=== PATIENT | female | born 1975 | race Caucasian/White ===

== ENCOUNTER 2018-12-18 08:45 | Day surgery (SDC) | payer OTHER ==
[~2018-12-18] VITALS: Ht 172.7 cm; Wt 62.0 kg
[~2018-12-18 08:45] MED LIST: Amoxicillin500 MG PO; Augmentin 875-1 EACH PO; CEPH500 PO; FERR325 PO; HYDACE5 PO; IBUP800 PO; LIDO2L TOP; MULVITMINE; NAPR500 PO; NAPR550 PO; OXYACE10 PO; OXYACE5T PO; RXHYDACE PO; RXNAPNA550 PO; RXOXYACE PO; SULTRIDS PO; Verotin-Gr Cap1 EACH PO
== END 2018-12-18 10:40 | disposition home or self-care (01) ==
LOC: ORSCSDS 08:45
PROVIDERS: Internal Medicine Gastroenterology
PROC: 0DJD8ZZ Inspection of Lower Intestinal Tract, Via Natural or Artificial Opening Endoscopic (ICD-10-PCS; principal; 2018-12-18 10:00)
DX: R10.84 Generalized abdominal pain (principal); K62.5 Hemorrhage of anus and rectum; K64.8 Other hemorrhoids; Z83.71 Family history of colonic polyps; Z79.899 Other long term (current) drug therapy
CPT/HCPCS: J2704; J7120

== ENCOUNTER 2021-08-06 13:13 | Day surgery (SDC) | payer OTHER ==
[~2021-08-06] VITALS: Ht 172.7 cm; Wt 63.7 kg
[~2021-08-06 13:13] MED LIST changes: +MAGCHL64ER; +MULVITA PO; +VITAMIN K240 MCG PO
--- NOTE | 2021-08-06 17:17 | NUR ---
Nishant Rivero warming gown applied. Discharge instructions reviewed with patient. Patient verbalizes understanding. Copy given to patient to take home. Patient States Post-Procedure ride home has been arranged. Discharged via wheelchair to private car for ride home.
== END 2021-08-06 22:41 | disposition home or self-care (01) ==
LOC: ORSCMMR 13:13 → ORD 14:45 → ORSCMMR 14:45
PROVIDERS: Obstetrics & Gynecology
PROC: 0HBAXZX Excision of Inguinal Skin, External Approach, Diagnostic (ICD-10-PCS; principal; 2021-08-06 14:45)
PROC: 0UBG7ZX Excision of Vagina, Via Natural or Artificial Opening, Diagnostic (ICD-10-PCS; principal; 2021-08-06 14:45)
DX: N89.6 Tight hymenal ring (principal); N90.89 Other specified noninflammatory disorders of vulva and perineum; N84.2 Polyp of vagina; L82.1 Other seborrheic keratosis; A63.0 Anogenital (venereal) warts; F32.A Depression, unspecified
CPT/HCPCS: 88305; 88342; A9270; J0690; J1100; J1885; J2250; J2405; J2704; J3010; J7120

== ENCOUNTER 2022-10-07 07:50 | Day surgery (SDC) | payer OTHER ==
[~2022-10-07] VITALS: Ht 170.2 cm; Wt 63.4 kg
[2022-10-07] VITALS (8 sets, daily range): BP systolic 96–126; BP diastolic 47–72
--- NOTE | 2022-10-07 08:45 | NUR ---
Ambulatory in Day Surgery. History, Chart, Medications and Allergies reviewed before start of procedure. Lungs clear T/O to Auscultation. Patient confirms NPO status and agrees with scheduled surgery. Pre-Op teaching done. Pt verbalizes understanding. Patient States Post-Procedure ride home has been arranged. PT BELONGINGS PLACED [facility]ATH [facility] FOR SAFEKEEPING.
== END 2022-10-07 10:51 | disposition home or self-care (01) ==
LOC: ORSCMMR 07:50 → ORD 09:00 → ORSCMMR 09:00 → ORD 14:30 → ORSCMMR 15:15 → ORD 15:30 → ORSCSDS 10-14 11:00
PROVIDERS: Obstetrics & Gynecology
PROC: 0UBMXZX Excision of Vulva, External Approach, Diagnostic (ICD-10-PCS; principal; 2022-10-07 09:00)
PROC: 0UBMXZZ Excision of Vulva, External Approach (ICD-10-PCS; principal; 2022-10-07 09:00)
DX: N84.3 Polyp of vulva (principal); N90.60 Unspecified hypertrophy of vulva; N93.0 Postcoital and contact bleeding; N94.10 Unspecified dyspareunia; R10.2 Pelvic and perineal pain
CPT/HCPCS: 88305; A9270; J0690; J1100; J2405; J2704; J3010; J7120

== ENCOUNTER → 2024-03-10 | Outpatient (CLI) | payer OTHER | LOC: LAB 17:07 → LAB SHORT 17:07 | DX: N39.0 Urinary tract infection, site not specified (principal) | CPT/HCPCS: 87086 ==

== ENCOUNTER → 2024-08-14 | Outpatient (CLI) | payer OTHER | LOC: LAB 18:12 → LAB SHORT 18:12 | DX: J02.9 Acute pharyngitis, unspecified (principal) | CPT/HCPCS: 87081 ==

== ENCOUNTER 2024-10-28 21:41 | Emergency (ER) | payer OTHER ==
[~2024-10-28] VITALS: Ht 172.7 cm; Wt 65.3 kg
[2024-10-28 22:08] LABS: BASOPHILS ABSOLUTE AUTO 0.03 K/mm3 (0.00-0.23); BASOPHILS PERCENT AUTO 1 % (0-2); EOSINOPHILS ABSOLUTE AUTO 0.08 K/mm3 (0.00-0.68); EOSINOPHILS PERCENT AUTO 1 % (0-6); Hematocrit 37.2 % (33.0-51.0); Hemoglobin 12.8 g/dL (11.5-16.0); IMMATURE GRAN ABSOLUTE AUTO 0.01 K/mm3 (0.00-0.10); IMMATURE GRAN PERCENT AUTO 0 % (0-1); LYMPHOCYTES ABSOLUTE AUTO 1.65 K/mm3 (0.84-5.20); LYMPHOCYTES PERCENT AUTO 27 % (21-46); MONOCYTES ABSOLUTE AUTO 0.57 K/mm3 (0.16-1.47); MONOCYTES PERCENT AUTO 9 % (4-13); Mean Corpuscular HGB Conc 34.4 g/dL (31.5-36.5); Mean Corpuscular Volume 94 fL (80-100); NEUTROPHILS ABSOLUTE AUTO 3.88 K/mm3 (1.96-9.15); NEUTROPHILS PERCENT AUTO 62 % (41-73); NRBC ABSOLUTE 0.00 K/mm3 (0.00-0.02); NRBC Auto 0.0 /100 WBC (0.0-0.2); Platelet Count 295 K/mm3 (150-400); RDW Coefficient Variation 11.5 % (11.7-14.2); RDW Standard Deviation 39.5 fL (35.1-46.3)
[2024-10-28 22:35] LABS: Alanine Aminotransfer (ALT/SGP 24.0 U/L (12-78); Albumin, Blood 4.0 g/dL (3.4-5.0); Albumin/Globulin Ratio 1.1 (0.8-1.8); Anion Gap 9.0 mmol/L (3-11); Aspartate Aminotrans (AST/SGOT 24.0 U/L (12-37); Bilirubin, Total 0.4 mg/dL (0.1-1.0); Blood Urea Nitrogen 17.0 mg/dL (8-24); CO2, Blood 29.0 mmol/L (21-32); Calcium, Blood 8.6 mg/dL (8.5-10.1); Chloride, Blood 103.0 mmol/L (98-108); Creatinine, Blood 0.85 mg/dL (0.40-1.00); Globulin, Blood 3.5 g/dL (2.2-4.0); Glucose, Blood 104.0 mg/dL (70-99); Potassium, Blood 3.7 mmol/L (3.5-5.5); Sodium, Blood 137.0 mmol/L (136-145); Thyroid Stimulating Hormone 2.52 uIU/mL (0.360-4.800); Total Protein, Blood 7.5 g/dL (6.4-8.2)
[2024-10-28] MEDS ORDERED: Lidocaine 2% Viscous Soln 15 ML UDC PO ONE (23:05)
[2024-10-29 00:45] VITALS: BP 122/83
[2024-10-29] MEDS ORDERED: FAMO20 PO (00:47)
[2024-10-29] MEDS ORDERED: PANT20 PO (00:47)
== END 2024-10-29 00:59 | disposition home or self-care (01) ==
LOC: ER 21:41
PROVIDERS: Student in an Organized Health Care Education/Training Program
DX: J02.9 Acute pharyngitis, unspecified (principal); K20.90 Esophagitis, unspecified without bleeding; Z79.899 Other long term (current) drug therapy
CPT/HCPCS: 80053; 84439; 84443; 85025; 99283; A9270